=== PATIENT | female | born 1985 | race Caucasian/White ===

== ENCOUNTER 2017-07-18 08:00 | Outpatient (CLI) | payer OTHER ==
[2017-07-18 17:28] LABS: BILIRUBIN,URINE NEGATIVE (NEGATIVE); GLUCOSE, URINE (UA) NEGATIVE (NEGATIVE); KETONES,URINE (UA) NEGATIVE (NEGATIVE); LEUKOCYTE ESTERASE, URINE NEGATIVE (NEGATIVE); NITRITE,URINE NEGATIVE (NEGATIVE); OCCULT BLOOD,URINE NEGATIVE (NEGATIVE); PROTEIN,URINE NEGATIVE (NEGATIVE); UROBILINOGEN,URINE 0.2 (NORMAL) E.U./dL (NORMAL)
[2017-07-18 17:33] LABS: CLARITY,URINE CLEAR (CLEAR); RBC,URINE 0-5 /HPF (0-5); SQUAMOUS EPITHELIAL CELL,UR RARE Squamous (<= Few)
[2017-07-18 17:34] LABS: BACTERIA,URINE Rare /HPF (None Seen)
== END 2017-07-18 08:01 | disposition home or self-care (01) ==
LOC: LAB.R 08:00
PROVIDERS: ATTEND Nurse Practitioner Family
DX: R35.0 Frequency of micturition (principal)
CPT/HCPCS: 81001; 87086

== ENCOUNTER 2017-07-26 14:57 | Outpatient (CLI) | payer OTHER ==
--- NOTE | 2017-07-26 17:40 | Ultrasound Report ---
LEFT INGUINAL HERNIA EVALUATION ULTRASOUND: 07/26/2017 No comparison. INDICATION: Concern for a left inguinal hernia. TECHNIQUE: Sonographic evaluation of the left inguinal region was performed. FINDINGS: There appears to be a small fat-containing left inguinal hernia. The neck measures approximately 4-5 mm. No apparent bowel within it. No adenopathy or other sonographic finding. IMPRESSION: FAVOR A SMALL FAT-CONTAINING LEFT INGUINAL HERNIA. TD: 07/26/2017 17:39 [facility]
== END 2017-07-26 14:58 | disposition home or self-care (01) ==
LOC: DI 14:57
PROVIDERS: ATTEND Nurse Practitioner Family
DX: K40.90 Unilateral inguinal hernia, without obstruction or gangrene, not specified as recurrent (principal); R10.32 Left lower quadrant pain
CPT/HCPCS: 76857

== ENCOUNTER 2017-09-09 06:09 | Day surgery (SDC) | payer OTHER ==
[2017-09-09] MEDS ORDERED: LACTATED RINGERS 1,000 ML IV ONE ×2 (06:30→07:36)
[2017-09-09] MEDS ORDERED: ceFAZolin 2 GM/50 ML 2 GM/50 ML BAG IV ONE (06:36)
[2017-09-09] MEDS ORDERED: BUPIVACAINE 0.5%-EPI 1:200000 PF 30 ML VIAL ONE (07:21)
[2017-09-09] MEDS ORDERED: LIDOCAINE 1% 50 ML MDV ONE (07:25)
[2017-09-09] MEDS ORDERED: LIDOCAINE 1% 50 ML MDV SUBQ ONE ×2 (07:57)
[2017-09-09] MEDS ORDERED: BUPIVACAINE 0.5%-EPI 1:200000 PF 30 ML VIAL SUBQ ONE ×2 (07:57)
[2017-09-09] MEDS ORDERED: PROPOFOL 200 MG/20 ML VIAL IVP ONE (08:00)
[2017-09-09] MEDS ORDERED: DEXAMETHASONE 4 MG/ML VIAL IVP ONE (08:00)
[2017-09-09] MEDS ORDERED: fentaNYL 100 MCG/2 ML VIAL IVP ONE (08:00)
[2017-09-09] MEDS ORDERED: MIDAZOLAM 2 MG/2 ML VIAL IVP ONE (08:00)
[2017-09-09] MEDS ORDERED: KETOROLAC 30 MG/ML VIAL IVP ONE (08:00)
[2017-09-09] MEDS ORDERED: ONDANSETRON 4 MG/2 ML VIAL IVP ONE (08:00)
[2017-09-09 08:15] LABS: HCG UR QUAL NEGATIVE
[2017-09-09 09:59] VITALS: BP 127/82
[2017-09-09] MEDS ORDERED: HYDROcod/ACETAM 5/325 MG TABLET ONE (10:00)
--- NOTE | 2017-09-09 19:28 | OPERATIVE REPORT ---
DATE OF SERVICE: 09/09/2017 Physician: Barrett Dupree MD DATE OF PROCEDURE: 09/09/2017. PREOPERATIVE DIAGNOSIS: Left inguinal hernia. POSTOPERATIVE DIAGNOSIS: Left inguinal hernia. NAME OF PROCEDURE: Left inguinal hernia repair. OPERATING SURGEON: Barrett Dupree MD ANESTHESIA: General. INDICATIONS FOR PROCEDURE: Patient is a 32-year-old female who has been having ongoing pain in the left groin region for approximately a year. It usually occurs with exercise or lifting. She had an abdominal ultrasound, which revealed a small hernia being present. FINDINGS AT SURGERY: Patient had a small, indirect inguinal hernia being present. The ilioinguinal and hypogastric nerves were identified. Due to the hernia being small, I did not feel that mesh reinforcement of the floor was necessary. DESCRIPTION OF PROCEDURE: After informed consent was obtained, patient was taken to the operating room and placed in supine position. General endotracheal anesthesia was administered. Patient's left groin was then prepped and draped in the usual sterile fashion. The skin overlying the inguinal canal was then injected with local anesthesia. A transverse incision was then made in the left groin over the inguinal canal with a scalpel. It was carried down to the external oblique fascial layer using electrocautery. The external oblique fascial layer was then opened, exposing the inguinal canal. The round ligament was then identified and dissected free. The ilioinguinal and hypogastric nerves were identified and preserved. A small indirect inguinal hernia sac was then identified. It was dissected free from the surrounding structures, as well as the round ligament. The round ligament was clamped proximally and distally with it then being removed. The divided ends were then tied using 3-0 Vicryl suture. The hernia sac was then inverted and secured with a 3-0 Vicryl pursestring suture. The internal inguinal ring was tightened using interrupted 3-0 Monocryl sutures. The internal oblique fascial layer was then brought down to the inguinal ligament covering the internal inguinal ring using interrupted 3-0 Ethibond sutures. The floor of the inguinal canal appeared to be intact, and therefore, I did not feel that mesh reinforcement was necessary. The external oblique fascial layer was then closed using a running 3-0 Vicryl suture, carefully avoiding the nerves. The subcutaneous tissue was closed using 3-0 Vicryl suture with the skin being closed using 4-0 Monocryl subcuticular stitch. Dermabond was then placed upon the incision. Patient was then awakened, extubated, and taken from the operating room in stable condition. ESTIMATED BLOOD LOSS: Less than a cc. COMPLICATIONS: None. CONDITION OF THE PATIENT AT THE END OF THE PROCEDURE: Stable. SPECIMENS: None. DRAINS/PACKS: None. CLASSIFICATION OF WOUND: Clean. TD: 09/09/2017 19:27
== END 2017-09-09 06:10 | disposition home or self-care (01) ==
LOC: SDS 06:09
PROVIDERS: ATTEND Surgery
PROC: 0YQ60ZZ Repair Left Inguinal Region, Open Approach (ICD-10-PCS; principal; 2017-09-09 07:30)
DX: K40.90 Unilateral inguinal hernia, without obstruction or gangrene, not specified as recurrent (principal)
CPT/HCPCS: 49505; 81025; A9270; J0690; J7120

== ENCOUNTER 2021-08-31 08:00 | Outpatient (CLI) | payer OTHER ==
[2021-08-31 15:05] LABS: BILIRUBIN,URINE NEGATIVE (NEGATIVE); GLUCOSE, URINE (UA) NEGATIVE (NEGATIVE); KETONES,URINE (UA) NEGATIVE (NEGATIVE); LEUKOCYTE ESTERASE, URINE SMALL (NEGATIVE); NITRITE,URINE NEGATIVE (NEGATIVE); OCCULT BLOOD,URINE TRACE-INTA (NEGATIVE); PROTEIN,URINE NEGATIVE (NEGATIVE); UROBILINOGEN,URINE 0.2 (NORMAL) E.U./dL (NORMAL)
[2021-08-31 15:40] LABS: CLARITY,URINE CLEAR (CLEAR)
[2021-08-31 17:00] LABS: BACTERIA,URINE Rare /HPF (None Seen); RBC,URINE 0-5 /HPF (0-5); SQUAMOUS EPITHELIAL CELL,UR FEW Squamous (<= Few)
== END 2021-08-31 08:01 | disposition home or self-care (01) ==
LOC: LAB.S 08:00
PROVIDERS: ATTEND Registered Nurse
DX: R30.0 Dysuria (principal)
CPT/HCPCS: 81001; 87077; 87086